=== PATIENT | male | born 1980 | race Caucasian/White ===

== ENCOUNTER 2020-01-08 16:28 | Emergency (ER) | payer OTHER ==
[~2020-01-08] VITALS: Ht 182.9 cm; Wt 73.0 kg
--- NOTE | 2020-01-08 16:30 | NUR ---
PT GIOVANNA FROM STREETS C/O SUICIDAL IDEATION "I WANT TO OVERDOSE ON DRUGS" PT IS AAOX4, NOT IN RESPIRATORY DISTRESS, HOOKED TO CLOTH WASHER BACK TENDER, KEPT RESTED AND COMFORTABLE, WILL CONTINUE TO MONITOR.
--- NOTE | 2020-01-08 16:35 | NUR ---
SECURITY AT BEDSIDE FOR WANDING.
--- NOTE | 2020-01-08 16:38 | NUR ---
URINE SPECIMEN COLLECTED AND SENT TO LAB.
--- NOTE | 2020-01-08 16:50 | NUR ---
ER PHLEB AT BEDSIDE FOR BLOOD DRAW.
--- NOTE | 2020-01-08 17:04 | NUR ---
FOOD TRAY PROVIDED.
[2020-01-08 17:08] LABS: BASOPHILS # (AUTO) 0.1 /CMM (0.0-0.2); BASOPHILS % (AUTO) 1.2 % (0.0-2.0); EOSINOPHILS % (AUTO) 1.8 % (0.0-6.0); HEMATOCRIT 43 % (39-51); HEMOGLOBIN 14.2 g/dL (13.5-17.5); LYMPHOCYTES # (AUTO) 1.3 /CMM (0.8-4.8); LYMPHOCYTES % (AUTO) 22.4 % (20.0-44.0); MEAN CORPUSCULAR HGB CONC 33 g/dl (31.0-36.0); MEAN CORPUSCULAR VOLUME 90 fL (80-96); MONOCYTES # (AUTO) 0.4 /CMM (0.1-1.30); MONOCYTES % (AUTO) 7.5 % (2.0-12.0); NEUTROPHILS # (AUTO) 3.8 /CMM (1.8-8.9); NEUTROPHILS % (AUTO) 67.1 % (43.0-81.0); PLATELET COUNT (AUTO) 239 /CMM (150-450); RED BLOOD CELL COUNT(AUTO) 4.77 MIL/uL (4.5-6.0); WHITE BLOOD COUNT (AUTO) 5.6 K/uL (4.3-11.0)
[2020-01-08 17:19] LABS: APPEARANCE,URINE Clear (CLEAR); BILIRUBIN,URINE Negative (NEGATIVE); BLOOD, URINE Negative Ery/uL (NEGATIVE); COLOR,URINE Yellow (YELLOW); KETONES,URINE Negative (NEGATIVE); LEUKOCYTE ESTERASE ,URINE Negative (NEGATIVE); NITRITE, URINE Negative (NEGATIVE); PROTEIN,URINE Negative (NEGATIVE); UGLUCOSE Negative (NEGATIVE)
[2020-01-08 17:27] LABS: ALANINE AMINOTRANSFERASE 52 U/L (12-78); ALBUMIN 3.9 g/dL (3.4-5.0); ALKALINE PHOSPHATASE 60 U/L (46-116); ASPARTATE AMINOTRANSFERASE 53 U/L (15-37); BILIRUBIN,DIRECT 0.1 mg/dL (0.0-0.2); BILIRUBIN,TOTAL 0.3 mg/dL (0.2-1.0); CALCIUM, SERUM 8.4 mg/dL (8.5-10.1); CARBON DIOXIDE 26 mmol/L (21-32); CHLORIDE 101 mmol/L (98-107); CREATININE 0.9 mg/dL (0.6-1.3); GLUCOSE 106 mg/dL (74-106); POTASSIUM 3.9 mmol/L (3.5-5.1); SODIUM SERUM 137 mmol/L (136-145); TOTAL PROTEIN, SERUM 7.6 g/dL (6.4-8.2); UREA NITROGEN, BLOOD 9 mg/dL (7-18)
[2020-01-08 17:29] LABS: ACETAMINOPHEN < 2 ug/ml (10-30); ALCOHOL, BLOOD < 3 mg/dL (0-0); SALICYLATE < 2.8 mg/dL (2.8-20.0)
[2020-01-08 17:31] LABS: BACTERIA,URINE None seen /HPF (None Seen); RBC,URINE 0-2 /HPF (0-2); SQUAMOUS EPITHELIAL CELL,UR Few /HPF (None Seen); WBC,URINE 0-2 /HPF (0-3)
--- NOTE | 2020-01-08 18:45 | NUR ---
[facility] CALLED FOR EVAL
--- NOTE | 2020-01-08 19:29 | NUR ---
SPOKE TO PT, PT DENIES PAIN, C/O SI TO OVERDOSE ON PILLS, NO HI. VSS. COOEPRATIVE, VSS.
--- NOTE | 2020-01-08 19:48 | NUR ---
PINKY AT BEDSIDE
--- NOTE | 2020-01-08 20:10 | NUR ---
CLINICAL INFORMATION FAXED TO [facility]
--- NOTE | 2020-01-08 21:56 | NUR ---
TRANSFER INFO: PT [facility] TO [facility] ACCE[facility]ING MD: DR. CASTANEDA/DR. NGUYEN NUMBER FOR REPORT: KIESHA (BILINGUAL SPEECH LANGUAGE PATHOLOGIST) [phone]
--- NOTE | 2020-01-08 22:04 | NUR ---
CALLED CALL THE CAR FOR TRANSPORTATION. ETA [phone]. CONFIRMATION #[id number]
--- NOTE | 2020-01-08 22:17 | NUR ---
REPORT GIVEN TO KIESHA GOMEZ FOR JOSEF
--- NOTE | 2020-01-09 00:12 | NUR ---
CALL THE CAR DELAY 45 MIN
[2020-01-09 00:45] VITALS: BP 115/74
--- NOTE | 2020-01-09 00:46 | NUR ---
REPORT GIVEN TO [facility]. PT TRANSFERED.
== END 2020-01-09 00:53 ==
LOC: ER 16:32 → EDBD 16:32 → ER 01-09 00:53
DX: R45.851 Suicidal ideations (principal); G40.909 Epilepsy, unspecified, not intractable, without status epilepticus; F31.9 Bipolar disorder, unspecified; F20.9 Schizophrenia, unspecified; E11.9 Type 2 diabetes mellitus without complications; Z59.0 Homelessness
CPT/HCPCS: 36415; 80048; 80076; 80305; 80307; 80329; 81001; 85025; 99285; G0480; 81000-TC

== ENCOUNTER 2020-01-12 19:19 | Emergency (ER) | payer OTHER ==
[~2020-01-12] VITALS: Ht 177.8 cm; Wt 68.0 kg
--- NOTE | 2020-01-12 19:20 | NUR ---
PT CAME TO THE ED C/O AUDITORY HALLUCINATIONS :"IM HEARING VOICES TELLING ME TO LEAVE PEOPLE ALONE". PT ENDORSES SI W/ A PLAN TO OD ON HIS MEDS. - HI. PT CHANGED INTO GOWN, BELONGINGS PLACED INTO LOCKER, CONNECTED TO THE MONITOR AND POX.SUICIDE PRECAUTIONS IMPLEMENTED. SITTER AT BEDSIDE FOR SAFETY
--- NOTE | 2020-01-12 19:38 | NUR ---
URINE COLLECTED AND SENT TO LAB
--- NOTE | 2020-01-12 19:45 | NUR ---
SECURITY AT BEDSIDE FOR WANDING
[2020-01-12 19:51] LABS: BASOPHILS # (AUTO) 0.1 /CMM (0.0-0.2); EOSINOPHILS % (AUTO) 1.6 % (0.0-6.0); HEMATOCRIT 43 % (39-51); HEMOGLOBIN 14.5 g/dL (13.5-17.5); LYMPHOCYTES # (AUTO) 2.5 /CMM (0.8-4.8); LYMPHOCYTES % (AUTO) 34.9 % (20.0-44.0); MEAN CORPUSCULAR HGB CONC 34 g/dl (31.0-36.0); MEAN CORPUSCULAR VOLUME 88 fL (80-96); NEUTROPHILS # (AUTO) 3.5 /CMM (1.8-8.9); NEUTROPHILS % (AUTO) 48.5 % (43.0-81.0); PLATELET COUNT (AUTO) 262 /CMM (150-450); RED BLOOD CELL COUNT(AUTO) 4.89 MIL/uL (4.5-6.0); WHITE BLOOD COUNT (AUTO) 7.3 K/uL (4.3-11.0)
[2020-01-12] MEDS ORDERED: OLANZAPINE 5 MG TABLET PO ONE (20:00)
[2020-01-12] MEDS ORDERED: OLANZAPINE 5 MG TABLET ONE (20:02)
[2020-01-12 20:06] LABS: ALANINE AMINOTRANSFERASE 35 U/L (12-78); ALBUMIN 4.5 g/dL (3.4-5.0); ALCOHOL, BLOOD < 3 mg/dL (0-0); ALKALINE PHOSPHATASE 67 U/L (46-116); ASPARTATE AMINOTRANSFERASE 33 U/L (15-37); BILIRUBIN,DIRECT 0.2 mg/dL (0.0-0.2); BILIRUBIN,TOTAL 0.9 mg/dL (0.2-1.0); CALCIUM, SERUM 9.1 mg/dL (8.5-10.1); CARBON DIOXIDE 29 mmol/L (21-32); CHLORIDE 100 mmol/L (98-107); CREATININE 1.3 mg/dL (0.6-1.3); GLUCOSE 85 mg/dL (74-106); POTASSIUM 3.4 mmol/L (3.5-5.1); SODIUM SERUM 141 mmol/L (136-145); TOTAL PROTEIN, SERUM 8.3 g/dL (6.4-8.2); UREA NITROGEN, BLOOD 17 mg/dL (7-18)
[2020-01-12 20:10] LABS: ACETAMINOPHEN < 10 ug/ml (10-30); SALICYLATE < 2.8 mg/dL (2.8-20.0)
[2020-01-12 20:17] LABS: APPEARANCE,URINE Clear (CLEAR); BILIRUBIN,URINE Negative (NEGATIVE); BLOOD, URINE Negative Ery/uL (NEGATIVE); COLOR,URINE Yellow (YELLOW); KETONES,URINE Trace (NEGATIVE); LEUKOCYTE ESTERASE ,URINE Negative (NEGATIVE); NITRITE, URINE Negative (NEGATIVE); PH,URINE 5.5 (5.0-8.0); PROTEIN,URINE Negative (NEGATIVE); UGLUCOSE Negative (NEGATIVE); UROBILINOGEN,URINE 0.2 EU/dL (0.2)
--- NOTE | 2020-01-12 20:28 | NUR ---
Patient is resting comfortably in bed. Easily aroused. VSS.
[2020-01-12 20:36] LABS: BACTERIA,URINE None seen /HPF (None Seen); RBC,URINE 0-2 /HPF (0-2); SQUAMOUS EPITHELIAL CELL,UR Few /HPF (None Seen); WBC,URINE 0-2 /HPF (0-3)
--- NOTE | 2020-01-12 22:16 | NUR ---
CLINICAL FAXED TO [facility] FOR VOLUNTARY PSYCH ADMISSION.
--- NOTE | 2020-01-12 23:25 | NUR ---
PER [facility], PT RECENTLY D/C FROM [facility], UNABLE TO ACCEPT PT. CLINICAL INFORMATION FAXED TO [facility].
--- NOTE | 2020-01-13 02:12 | NUR ---
TRANSFER INFORMATION: PT ACCEPTED TO [facility] ACCEPTING MD: DR. NGUYEN/DR. CASTANEDA NUMBER FOR REPORT: [phone] EXT [phone]
--- NOTE | 2020-01-13 02:28 | NUR ---
PER DAISHA FROM [facility], TRANSFER PATIENT AFTER 5AM. CALLED CALL THE CAR FOR TRANSPORTATION. CONFIRMATION [id number]
--- NOTE | 2020-01-13 02:35 | NUR ---
[facility] ETA [phone]
--- NOTE | 2020-01-13 03:19 | NUR ---
Patient is resting comfortably in bed. Easily aroused. VSS.
--- NOTE | 2020-01-13 04:25 | NUR ---
Patient is resting comfortably in bed with eyes closed. Easily aroused. VSS. Sitter at bedside. Will continue to monitor
--- NOTE | 2020-01-13 05:56 | NUR ---
PT RESTING IN BED COMFORTABLY. NO ACUTE DISTRESS NOTED. VSS. SITTER AT BEDSIDE FOR SAFETY
--- NOTE | 2020-01-13 06:13 | NUR ---
REPORT GIVEN TO [facility]AS[facility]DR[facility]
[2020-01-13 07:07] VITALS: BP 118/82
--- NOTE | 2020-01-13 07:46 | NUR ---
REPORT GIVEN TO EMS FOR PT TRANSFER TO [facility].
== END 2020-01-13 07:48 ==
LOC: ER 19:26
DX: F23 Brief psychotic disorder (principal); R45.851 Suicidal ideations; F15.10 Other stimulant abuse, uncomplicated; E87.6 Hypokalemia; E11.9 Type 2 diabetes mellitus without complications; F31.9 Bipolar disorder, unspecified; Z59.0 Homelessness
CPT/HCPCS: 36415; 80048; 80076; 80305; 80307; 80329; 81001; 85025; 99285; G0480; 81000-TC

== ENCOUNTER 2020-01-31 19:33 | Emergency (ER) | payer OTHER ==
[~2020-01-31] VITALS: Ht 175.3 cm; Wt 63.5 kg
[2020-01-31 20:38] LABS: APPEARANCE,URINE Clear (CLEAR); BILIRUBIN,URINE Negative (NEGATIVE); BLOOD, URINE Negative Ery/uL (NEGATIVE); COLOR,URINE Yellow (YELLOW); KETONES,URINE Negative (NEGATIVE); LEUKOCYTE ESTERASE ,URINE Trace (NEGATIVE); NITRITE, URINE Negative (NEGATIVE); PH,URINE 5.5 (5.0-8.0); PROTEIN,URINE Negative (NEGATIVE); UGLUCOSE Negative (NEGATIVE); UROBILINOGEN,URINE 0.2 EU/dL (0.2)
[2020-01-31 20:42] LABS: BACTERIA,URINE Few /HPF (None Seen); RBC,URINE 0-2 /HPF (0-2); SQUAMOUS EPITHELIAL CELL,UR Few /HPF (None Seen)
[2020-01-31 20:43] LABS: BASOPHILS # (AUTO) 0.1 /CMM (0.0-0.2); EOSINOPHILS % (AUTO) 3.4 % (0.0-6.0); HEMATOCRIT 41 % (39-51); HEMOGLOBIN 13.7 g/dL (13.5-17.5); LYMPHOCYTES # (AUTO) 2.6 /CMM (0.8-4.8); LYMPHOCYTES % (AUTO) 35.3 % (20.0-44.0); MEAN CORPUSCULAR HGB CONC 33 g/dl (31.0-36.0); MEAN CORPUSCULAR VOLUME 89 fL (80-96); MONOCYTES % (AUTO) 13.7 % (2.0-12.0); NEUTROPHILS # (AUTO) 3.4 /CMM (1.8-8.9); NEUTROPHILS % (AUTO) 46.6 % (43.0-81.0); PLATELET COUNT (AUTO) 229 /CMM (150-450); RED BLOOD CELL COUNT(AUTO) 4.63 MIL/uL (4.5-6.0); WHITE BLOOD COUNT (AUTO) 7.2 K/uL (4.3-11.0)
[2020-01-31 20:52] LABS: CALCIUM, SERUM 8.6 mg/dL (8.5-10.1); CARBON DIOXIDE 31 mmol/L (21-32); CHLORIDE 105 mmol/L (98-107); CREATININE 1.1 mg/dL (0.6-1.3); GLUCOSE 74 mg/dL (74-106); POTASSIUM 3.6 mmol/L (3.5-5.1); SODIUM SERUM 141 mmol/L (136-145); UREA NITROGEN, BLOOD 19 mg/dL (7-18)
[2020-01-31 20:57] LABS: ACETAMINOPHEN < 2 ug/ml (10-30); ALANINE AMINOTRANSFERASE 33 U/L (12-78); ALBUMIN 3.9 g/dL (3.4-5.0); ALCOHOL, BLOOD < 3 mg/dL (0-0); ALKALINE PHOSPHATASE 61 U/L (46-116); ASPARTATE AMINOTRANSFERASE 25 U/L (15-37); BILIRUBIN,DIRECT 0.1 mg/dL (0.0-0.2); BILIRUBIN,TOTAL 0.5 mg/dL (0.2-1.0); SALICYLATE < 2.8 mg/dL (2.8-20.0); TOTAL PROTEIN, SERUM 7.1 g/dL (6.4-8.2)
--- NOTE | 2020-01-31 21:01 | NUR ---
JOJO WALKED IN TO ER. TO BED 13. AAOX4. NOT IN RESP DISTRESS. AMBULATORY. CAME IN FOR SUICIDAL IDEATION W/ PLAN TO CUT HIS WRIST. PT STATES THAT HE IS FEELING ANGRY. DENIES HI. POSITIVE FOR VISUAL AND AUDITORY HALLUCINATIONS - SEES AND HEAR PEOPLE TELLING HIM TO HURST HIMSELF. PT IS STRIPPED OF CLOTHING, GOWN, VISUALLY INSPECTED AND BELONGINGS PLACED IN LOCKER LOCATED IN UTILITY ROOM. 1:1 SITTER AT BEDSIDE W/ CONSTANT VISUAL CHECK. WAS AT BEDSIDE FOR EVAL. ORDERS RECEIVED NOTED AND CARRIED OUT.
[2020-01-31] MEDS ORDERED: OLANZAPINE 5 MG TABLET PO ONE (22:00)
[2020-01-31] MEDS ORDERED: OLANZAPINE 5 MG TABLET ONE (22:24)
--- NOTE | 2020-02-01 06:14 | NUR ---
PATIENT IS SLEEPING. EASILY AROUSED THROUGH VERBAL AND TACTILE STIMULI. BREATHING EVENLY AND UNLABORED ON ROOM AIR. CONNECTED TO THE MONITOR. SITTER AT BEDSIDE
--- NOTE | 2020-02-01 08:35 | NUR ---
Transmission Supervisor consult requested by ED DEBBIE Estrada for voluntary psychiatric hospitalization. Per MD notes, pt is a 39-year-old male with history of bipolar disorder and schizoaffective disorder as well as methamphetamine abuse, used to take Wellbutrin and Seroquel but has not taken them recently. Patient presents stating that he wants to cut his wrists. He seeks voluntary psychiatric admission. Patient was short tempered, rude, and agitated. CARE SERVICES MANAGER conducted chart review and met with the pt bedside. CARE SERVICES MANAGER introduced self and purpose of the visit. Pt is alert and oriented x 4. Pt is rude and verbally abusive and not willing to cooperate with CARE SERVICES MANAGER. CARE SERVICES MANAGER contacted Mina at [facility] to initiate voluntary psychiatric hospitalization. CARE SERVICES MANAGER faxed clinicals to [facility] intake dept. Transmission Supervisor is available for support as needed.
--- NOTE | 2020-02-01 09:21 | NUR ---
Pt refuses homeless discharge and refuses to speak with mental health social worker. Pt requests to return to previous living situation PT. VERBALIZED UNDERSTANDING OF AFTERCARE INSTRUCTIONS.Patient discharged to home in stable condition. Written and verbal after care instructions given. Patient verbalizes understanding of instruction. .
--- NOTE | 2020-02-01 09:21 | NUR ---
Pt denies suicidal or homicidal ideation.
[2020-02-01 09:30] VITALS: BP 127/84
== END 2020-02-01 09:30 | disposition home or self-care (01) ==
LOC: ER 19:33
DX: R45.851 Suicidal ideations (principal); F15.10 Other stimulant abuse, uncomplicated; F31.9 Bipolar disorder, unspecified; F25.9 Schizoaffective disorder, unspecified; E11.9 Type 2 diabetes mellitus without complications; Z59.0 Homelessness; Z04.6 Encounter for general psychiatric examination, requested by authority
CPT/HCPCS: 36415; 80048; 80076; 80305; 80307; 80329; 81001; 85025; 99284; G0480; 81000-TC